=== PATIENT | male | born 1950 | race African-American/Black ===

== ENCOUNTER 2017-02-07 05:36 | Emergency (ER) | payer MEDICAID ==
[~2017-02-07] VITALS: Ht 162.6 cm; Wt 59.0 kg
[~2017-02-07 05:36] MED LIST: HYDR-519 PO; LOVA40TA73 PO; SOMA PO
[2017-02-07] MEDS ORDERED: IBUPROFEN 600MG TABLET PO ONE (06:45)
[2017-02-07 07:55] VITALS: BP 143/85
== END 2017-02-07 07:55 | disposition home or self-care (01) ==
LOC: ER 05:36
DX: S30.0XXA Contusion of lower back and pelvis, initial encounter (principal); M19.90 Unspecified osteoarthritis, unspecified site; F17.210 Nicotine dependence, cigarettes, uncomplicated; Z88.0 Allergy status to penicillin; Z98.890 Other specified postprocedural states; W22.8XXA Striking against or struck by other objects, initial encounter; Y93.89 Activity, other specified; Y92.810 Car as the place of occurrence of the external cause
CPT/HCPCS: 72100; 99284

== ENCOUNTER 2017-05-20 06:10 | Emergency (ER) | payer MEDICAID ==
[~2017-05-20] VITALS: Ht 162.6 cm; Wt 54.5 kg
[2017-05-20] MEDS ORDERED: DEXAMETHASONE 4MG/ML 1ML VIAL IM SCH (10:00)
[2017-05-20] MEDS ORDERED: IBUPROFEN 800MG TABLET PO ONE (10:00)
[2017-05-20 10:16] VITALS: BP 164/96
== END 2017-05-20 10:25 | disposition home or self-care (01) ==
LOC: ER 06:10
DX: M54.9 Dorsalgia, unspecified (principal); F17.200 Nicotine dependence, unspecified, uncomplicated; M19.90 Unspecified osteoarthritis, unspecified site; Z88.0 Allergy status to penicillin; W22.03XA Walked into furniture, initial encounter; Y93.89 Activity, other specified; Y92.89 Other specified places as the place of occurrence of the external cause; Y99.8 Other external cause status
CPT/HCPCS: 96372; 99283; J1100

== ENCOUNTER 2017-07-12 04:38 | Emergency (ER) | payer MEDICAID ==
[~2017-07-12] VITALS: Ht 162.6 cm; Wt 55.0 kg
[2017-07-12] MEDS ORDERED: ACETAMINOPHEN 500MG TABLET PO ONE (07:45)
[2017-07-12 08:38] VITALS: BP 155/98
== END 2017-07-12 08:39 | disposition home or self-care (01) ==
LOC: ER 04:38
DX: S90.32XA Contusion of left foot, initial encounter (principal); F17.200 Nicotine dependence, unspecified, uncomplicated; Z88.0 Allergy status to penicillin; W22.8XXA Striking against or struck by other objects, initial encounter; Y93.89 Activity, other specified; Y92.89 Other specified places as the place of occurrence of the external cause; Y99.8 Other external cause status
CPT/HCPCS: 73630; 99284; Z7610

== ENCOUNTER 2017-12-30 06:12 | Emergency (ER) | payer MEDICARE, MEDICAID ==
[~2017-12-30] VITALS: Ht 162.6 cm; Wt 58.0 kg
[2017-12-30] MEDS ORDERED: ACETAMINOPHEN WITH CODEINE 300/30MG TABLET PO ONE (08:00)
[2017-12-30 09:00] VITALS: BP 140/89
== END 2017-12-30 09:43 | disposition home or self-care (01) ==
LOC: ER 09:20
DX: S70.02XA Contusion of left hip, initial encounter (principal); E78.00 Pure hypercholesterolemia, unspecified; F17.200 Nicotine dependence, unspecified, uncomplicated; Z88.0 Allergy status to penicillin; W01.0XXA Fall on same level from slipping, tripping and stumbling without subsequent striking against object, initial encounter; Y93.E1 Activity, personal bathing and showering; Y92.89 Other specified places as the place of occurrence of the external cause; Y99.8 Other external cause status
CPT/HCPCS: 73502; 99284

== ENCOUNTER 2018-05-29 05:08 | Emergency (ER) | payer MEDICARE, MEDICAID ==
[~2018-05-29] VITALS: Ht 162.6 cm; Wt 58.0 kg
[2018-05-29] MEDS ORDERED: TRAMADOL 50MG TABLET PO ONE (07:15)
[2018-05-29 09:12] VITALS: BP 124/76
== END 2018-05-29 09:49 | disposition home or self-care (01) ==
LOC: ER 05:08
DX: M25.551 Pain in right hip (principal); Z88.0 Allergy status to penicillin
CPT/HCPCS: 73502; 99284

== ENCOUNTER 2018-05-29 20:26 | Emergency (ER) | payer MEDICARE, MEDICAID ==
[~2018-05-29] VITALS: Ht 167.6 cm; Wt 63.5 kg
[2018-05-29] MEDS ORDERED: SODIUM CHLORIDE 0.9% 1,000 ML IV ONE (21:44)
[2018-05-30 00:36] LABS: BASOPHILS % 0.5 % (0.0-2.0); EOSINOPHILS % 0.1 % (0.0-5.0); HEMATOCRIT. 42.9 % (42.0-52.0); HEMOGLOBIN. 14.3 g/dL (14.0-18.0); LYMPHOCYTES % 16.9 % (20.0-50.0); MEAN CORPUSCULAR HEMOGLOBIN 30.4 pg (28.0-32.0); MEAN CORPUSCULAR VOLUME 91.3 fL (80.0-94.0); MEAN PLATELET VOLUME 7.2 fl (7.4-10.4); MONOCYTES % 5.3 % (2.0-8.0); NEUTROPHILS % 77.2 % (40.0-76.0); PLATELET 276 x1000/uL (130-400); RED CELL DISTRIBUTION WIDTH 15.1 % (11.6-14.6)
[2018-05-30 00:39] LABS: CHLORIDE 110 mEq/L (98-107)
[2018-05-30 00:41] LABS: PROTHROMBIN TIME 10.4 sec (9.1-11.1)
[2018-05-30 00:43] LABS: ETHANOL BLOOD < 10 mg/dL
[2018-05-30 00:46] LABS: AMMONIA 17 uMol/L (<32)
[2018-05-30 00:48] LABS: CREATINE KINASE 170 IU/L (39-308)
[2018-05-30 01:24] VITALS: BP 127/84
== END 2018-05-30 01:54 | disposition home or self-care (01) ==
LOC: ER 20:26
DX: T51.0X1A Toxic effect of ethanol, accidental (unintentional), initial encounter (principal); G92 Toxic encephalopathy; S09.8XXA Other specified injuries of head, initial encounter; F17.200 Nicotine dependence, unspecified, uncomplicated; R03.0 Elevated blood-pressure reading, without diagnosis of hypertension; Y90.0 Blood alcohol level of less than 20 mg/100 ml; Z98.890 Other specified postprocedural states; Z88.0 Allergy status to penicillin; Z90.81 Acquired absence of spleen; W01.0XXA Fall on same level from slipping, tripping and stumbling without subsequent striking against object, initial encounter; Y92.018 Other place in single-family (private) house as the place of occurrence of the external cause
CPT/HCPCS: 36415; 70450; 71045; 80053; 82140; 82550; 82962; 84443; 84484; 85025; 85610; 93005; 96360; 99285; G0482; J7030

== ENCOUNTER 2018-11-30 03:14 | Emergency (ER) | payer MEDICARE, MEDICAID ==
[~2018-11-30] VITALS: Ht 162.6 cm; Wt 58.0 kg
[2018-11-30] MEDS ORDERED: IBUPROFEN 600MG TABLET PO ONE (04:45)
[2018-11-30 06:31] VITALS: BP 143/104
== END 2018-11-30 06:33 | disposition home or self-care (01) ==
LOC: ER 03:14
DX: S70.02XA Contusion of left hip, initial encounter (principal); M53.3 Sacrococcygeal disorders, not elsewhere classified; F17.200 Nicotine dependence, unspecified, uncomplicated; Z90.81 Acquired absence of spleen; Z88.0 Allergy status to penicillin; Z79.899 Other long term (current) drug therapy; Z98.890 Other specified postprocedural states; W01.0XXA Fall on same level from slipping, tripping and stumbling without subsequent striking against object, initial encounter; Y93.89 Activity, other specified; Y92.89 Other specified places as the place of occurrence of the external cause; Y99.8 Other external cause status
CPT/HCPCS: 72220; 73502; 99283

== ENCOUNTER 2019-02-18 04:25 | Emergency (ER) | payer MEDICARE, MEDICAID ==
[~2019-02-18] VITALS: Ht 162.6 cm; Wt 58.0 kg
[2019-02-18] MEDS ORDERED: IBUPROFEN 600MG TABLET PO ONE (06:15)
[2019-02-18 06:27] VITALS: BP 118/72
== END 2019-02-18 06:41 | disposition home or self-care (01) ==
LOC: ER 04:25
DX: S49.81XA Other specified injuries of right shoulder and upper arm, initial encounter (principal); F17.200 Nicotine dependence, unspecified, uncomplicated; W22.8XXA Striking against or struck by other objects, initial encounter; Y93.01 Activity, walking, marching and hiking; Y92.89 Other specified places as the place of occurrence of the external cause; Y99.8 Other external cause status; Z88.0 Allergy status to penicillin; Z90.81 Acquired absence of spleen
CPT/HCPCS: 99282; A4565

== ENCOUNTER 2019-03-31 07:32 | Emergency (ER) | payer MEDICARE, MEDICAID ==
[~2019-03-31] VITALS: Ht 167.6 cm; Wt 58.0 kg
[2019-03-31] MEDS ORDERED: IBUPROFEN 600MG TABLET PO ONE (09:30)
[2019-03-31 10:46] VITALS: BP 119/81
== END 2019-03-31 10:49 | disposition home or self-care (01) ==
LOC: ER 07:48
DX: M25.511 Pain in right shoulder (principal); M54.5 Low back pain; F17.200 Nicotine dependence, unspecified, uncomplicated; Z88.0 Allergy status to penicillin; Z79.899 Other long term (current) drug therapy
CPT/HCPCS: 99283

== ENCOUNTER 2019-04-14 06:09 | Emergency (ER) | payer MEDICARE, MEDICAID ==
[~2019-04-14] VITALS: Ht 162.6 cm; Wt 59.0 kg
[2019-04-14] MEDS ORDERED: CARISOPRODOL 350 MG TABLET PO ONE (07:00)
[2019-04-14] MEDS ORDERED: HYDROCODONE/ACETAMINOPHEN 5/325MG TABLET PO ONE (07:00)
[2019-04-14 08:30] VITALS: BP 118/69
== END 2019-04-14 08:47 | disposition home or self-care (01) ==
LOC: ER 06:09
DX: M54.5 Low back pain (principal); G89.29 Other chronic pain; M25.511 Pain in right shoulder; F17.200 Nicotine dependence, unspecified, uncomplicated; Z98.890 Other specified postprocedural states; Z88.0 Allergy status to penicillin
CPT/HCPCS: 73030; 99283